=== PATIENT | male | born 2000 | race Caucasian/White ===

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

== ENCOUNTER 2022-07-21 11:55 | Emergency (ER) | payer MEDICARE, MEDICAID ==
[~2022-07-21] VITALS: Ht 180.3 cm; Wt 66.0 kg
[~2022-07-21 11:55] MED LIST: DESO15OI TP
[2022-07-21 11:57] VITALS: BP 139/89
[2022-07-21] MEDS ORDERED: dexamethasone sod phosphate 10mg/ml inj IM STA (12:17)
[2022-07-21] MEDS ORDERED: TRIA15CR61 TOP (12:20)
[2022-07-21] MEDS ORDERED: HYDR-3686 PO (12:20)
== END 2022-07-21 12:43 | disposition home or self-care (01) ==
LOC: ER 11:56
DX: L23.89 Allergic contact dermatitis due to other agents (principal); F17.200 Nicotine dependence, unspecified, uncomplicated; F12.10 Cannabis abuse, uncomplicated; Z79.899 Other long term (current) drug therapy; Z79.1 Long term (current) use of non-steroidal anti-inflammatories (NSAID)
CPT/HCPCS: 96372; 99283; J1100

== ENCOUNTER 2022-08-29 17:39 | Emergency (ER) | payer MEDICARE, MEDICAID ==
[~2022-08-29] VITALS: Ht 177.8 cm; Wt 72.7 kg
[~2022-08-29 17:39] MED LIST changes: +HYDR-3686 PO
[2022-08-29 17:48] VITALS: BP 110/63
[2022-08-29] MEDS ORDERED: dexamethasone sod phosphate 10mg/ml inj IM STA (18:54)
== END 2022-08-29 19:16 | disposition left against medical advice (07) ==
LOC: ER 17:40
DX: A41.2 Sepsis due to unspecified staphylococcus (principal); L53.8 Other specified erythematous conditions
CPT/HCPCS: 99281

== ENCOUNTER 2022-10-31 20:20 | Emergency (ER) | payer MEDICARE, MEDICAID ==
[~2022-10-31] VITALS: Ht 180.3 cm; Wt 51.0 kg
[2022-10-31 20:23] VITALS: BP 128/89; PULSE 124; RESP 18; TEMP 98.9; O2SAT 96
== END 2022-11-01 00:08 | disposition home or self-care (01) ==
LOC: ER 20:21
DX: H61.23 Impacted cerumen, bilateral (principal); J45.909 Unspecified asthma, uncomplicated; F17.200 Nicotine dependence, unspecified, uncomplicated; F12.90 Cannabis use, unspecified, uncomplicated; F15.90 Other stimulant use, unspecified, uncomplicated; Z79.899 Other long term (current) drug therapy
CPT/HCPCS: 69209; 99282

== ENCOUNTER 2023-11-30 15:52 | Emergency (ER) | payer MEDICARE, MEDICAID ==
[~2023-11-30] VITALS: Ht 177.8 cm; Wt 67.4 kg
[2023-11-30] MEDS: normal saline 1000ml 1,000 ML IV ONE (16:47)
[2023-11-30 16:48] LABS: EOSINOPHILS # (AUTO) 1.8 X10'3 (0-0.9); MONOCYTES # (AUTO) 0.8 X10'3 (0-0.9); NEUTROPHILS # (AUTO) 5.5 X10'3 (1.8-7.7); PLATELET COUNT 209 X10'3 (140-440)
[2023-11-30 16:49] LABS: BASOPHILS # (AUTO) 0.1 X10'3 (0-0.2); HEMATOCRIT 48.6 % (42.0-52.0); HEMOGLOBIN 16.6 g/dl (14.0-17.9); LYMPHOCYTES # (AUTO) 1.1 X10'3 (1.1-4.8); LYMPHOCYTES % (AUTO) 12.2 % (21-51); MEAN CORPUSCULAR HEMOGLOBIN 30.4 PG (27.0-31.0); MEAN CORPUSCULAR HGB CONC 34.1 g/dL (33.0-36.5); MEAN CORPUSCULAR VOLUME 89.3 FL (78-98); MEAN PLATELET VOLUME 9.7 FL (7.4-10.4); MONOCYTES % (AUTO) 9.1 % (2-12); NEUTROPHILS % (AUTO) 58.7 % (42-75); RED BLOOD COUNT 5.44 X10'6 (4.70-6.10); RED CELL DISTRIBUTION WIDTH 12.8 % (11.5-14.5); WHITE BLOOD COUNT 9.3 X10'3 (4.5-11.0)
[2023-11-30] MEDS: ondansetron/PF 4mg/2ml inj IV ONE (16:54)
[2023-11-30] MEDS: LORazepam 2 mg/ml vial IV ONE (17:03)
[2023-11-30 17:04] LABS: ALANINE AMINOTRANSFERASE 34 U/L (12-78); ALBUMIN 4.5 G/DL (3.4-5.0); ALBUMIN/GLOBULIN RATIO 1.3 (1.1-1.5); ALKALINE PHOSPHATASE 122 IU/L (46-116); ANION GAP 12 (8-16); ASPARTATE AMINO TRANSFERASE 28 U/L (10-37); BILIRUBIN,TOTAL 1.9 MG/DL (0.1-1.0); BLOOD UREA NITROGEN 10 MG/DL (7-18); BUN/CREATININE RATIO 10.6 (10.0-20.0); CALCIUM 9.2 MG/DL (8.5-10.1); CHLORIDE 103 MMOL/L (99-107); CREATINE KINASE 230 U/L (39-308); CREATININE 0.94 MG/DL (0.60-1.10); ETHANOL < 10 MG/DL (<10); GLUCOSE 100 MG/DL (70-104); POTASSIUM 3.4 MMOL/L (3.5-5.1); SODIUM 142 MMOL/L (135-145); TOTAL CARBON DIOXIDE 26.9 MMOL/L (24-32); TOTAL PROTEIN 8.1 G/DL (6.4-8.2); eCRCL 118 ML/MIN; eGFR > 90 ML/MIN
[2023-11-30] MEDS ORDERED: PERM60CR19 TOP (17:57)
[2023-11-30 18:05] VITALS: BP 138/91; PULSE 98; RESP 20; TEMP 98; O2SAT 97
== END 2023-11-30 18:09 | disposition home or self-care (01) ==
LOC: ER 15:52
DX: F15.10 Other stimulant abuse, uncomplicated (principal); F10.129 Alcohol abuse with intoxication, unspecified; F41.9 Anxiety disorder, unspecified; J45.909 Unspecified asthma, uncomplicated; F12.90 Cannabis use, unspecified, uncomplicated; F14.90 Cocaine use, unspecified, uncomplicated; Z79.899 Other long term (current) drug therapy; Z72.89 Other problems related to lifestyle
CPT/HCPCS: 80053; 82550; 85025; 96361; 96374; 96375; 99284; G0480; J2060; J2405; J7030; 80320

== ENCOUNTER 2024-09-16 11:16 | Emergency (ER) | payer MEDICARE, MEDICAID ==
[~2024-09-16] VITALS: Ht 180.3 cm; Wt 49.9 kg
[2024-09-16 11:26] VITALS: BP 115/81; PULSE 110; RESP 16; TEMP 97.8; O2SAT 99
--- NOTE | 2024-09-16 12:00 | Physician Documentation ---
History of Present Illness ~ Chief Complaint: Mental Health Eval Stated Complaint: MH Time Seen by MD: 11:55 Primary Medical Doctor: [facility] HPI 24-year-old male with a history of intellectual disability with recent meth use presents stating he has been hearing voices. Thought denies any HI or SI states that he does not like one person limb a outside and the streets and will not to hurt them denies any intentions to hurt healthcare personnel. Day of Onset: Sep 16, 2024 Medication Reconciliation Allergies: Coded Allergies: No Known Allergies (Unverified , 06/21/14) Scheduled Desoximetasone (Desoximetasone), 0.5 GM TP BID Scheduled PRN Hydroxyzine Hcl (Atarax), 25 MG PO Q6H PRN for itching Past Medical History Past Medical History: No Pertinent History, Asthma, Eczema, Anxiety Past Surgical History: no surgical history Other Past Family History: none Alcohol Use: Occasionally Drug Use: marijuana, methamphetamine, cocaine, heroin Lives with: Family Lives In: Home Review of Systems All Other Systems at this time: Reviewed and Negative ROS As stated above in the HPI, otherwise all systems are reviewed and negative. Physical Exam Vital Signs: Temperature: 97.8, Source: Temporal, Heart Rate: 110, Respiratory Rate: 16, BP: 115/81, Pulse Oximetry: 99, Weight: 49.900 Physical Exam General: Alert, no apparent distress. Neck: Full range of motion. Psychiatric: anxious appearing Skin: Normal color, warm and dry. No edema, no ecchymosis. Progress Results/Orders Results/Orders Vital Signs 09/16/24 11:26 Temp 97.8 Pulse 110 Resp 16 B/P (MAP) 115/81 Pulse Ox 99 Medical Decision Making Findings elopd Differential Dx:Considerations: Include: Alcohol abuse, Anxiety, Bipolar disorder, Conversion disorder, Depression, Encephaloathy, Homicidal, Panic disorder, Personality disorder, Schizophrenia, Substance abuse, Suicidal, Other Departure Disposition: 07 LEFT AWOL/ELOPED Impression: Primary Impression: Mental disorder Referrals: NO PRIMARY CARE PROVIDER (PCP) Signature Scribe Signature: h Attestation: The note accurately reflects work and decisions made by me.Bart Navarrete NP 09/16/24 12:29 BART DUMONT NP Sep 16, 2024 12:00
== END 2024-09-16 12:34 | disposition left against medical advice (07) ==
LOC: ER 11:16
DX: F99 Mental disorder, not otherwise specified (principal); F41.9 Anxiety disorder, unspecified; F12.90 Cannabis use, unspecified, uncomplicated; F15.90 Other stimulant use, unspecified, uncomplicated; F11.90 Opioid use, unspecified, uncomplicated; F14.90 Cocaine use, unspecified, uncomplicated
CPT/HCPCS: 99281